=== PATIENT | male | born 1960 | race Caucasian/White ===

== ENCOUNTER 2017-09-03 13:09 | Outpatient (CLI) | payer OTHER ==
[2017-09-03 13:48] LABS: Hemoglobin 15.3 g/dL (14.0-18.0); Mean Corpuscular HGB CONC 34.5 g/dL (32.0-36.0); Mean Corpuscular Hemoglobin 33.8 pg (27.0-31.0); Mean Corpuscular Volume 97.9 fL (78.0-98.0); Mean Platelet Volume 7.9 fL (7.4-10.4); Platelet Count 190 thou/uL (130-400); RBC Distribution Width 13.6 % (11.5-14.5); Red Blood Cell (RBC) Count 4.53 mill/uL (4.70-6.10); White Blood Cell (WBC) Count 6.8 thou/uL (4.8-10.8)
[2017-09-03 14:02] LABS: PTT 27.5 SEC (22.9-36.1)
[2017-09-03 14:03] LABS: INR-International Normal Ratio 1.1
[2017-09-03 14:13] LABS: ALT (SGPT) 17 U/L (8-55); AST (SGOT) 17 U/L (5-34); Albumin 4.3 g/dL (3.5-5.0); Alkaline Phosphatase 60 U/L (40-150); Anion Gap 12 mmol/L (10-20); BUN (Urea Nitrogen) 13 mg/dL (8.4-25.7); Bilirubin, Total 1.1 mg/dL (0.2-1.2); Calc. Creatinine Clearance 0 mL/min (70-130); Calcium 9.4 mg/dL (7.8-10.44); Carbon Dioxide 28 mmol/L (22-29); Chloride 104 mmol/L (98-107); Estimated GFR-MDRD 89; Globulin 2.3 g/dL (2.4-3.5); Glucose 179 mg/dL (70-105); Potassium 3.8 mmol/L (3.5-5.1); Protein, Total 6.6 g/dL (6.0-8.3); Sodium 140 mmol/L (136-145)
--- NOTE | 2017-09-03 17:22 | EKG ---
Test Reason : Blood Pressure : / mmHG Vent. Rate : 089 BPM Atrial Rate : 077 BPM P-R Int : 000 ms QRS Dur : 104 ms QT Int : 352 ms P-R-T Axes : 000 018 105 degrees QTc Int : 428 ms Atrial fibrillation Incomplete right bundle branch block Cannot rule out Anterior infarct , age undetermined Nonspecific ST-T changes Abnormal ECG No previous ECGs available Confirmed by DR. Chanda DOCKERY ([id number]) on 09/03/2017 5:22:21 PM Referred By: ELROY Confirmed By:DR. Chanda DOCKERY
== END 2017-09-03 13:10 | disposition home or self-care (01) ==
LOC: LABBT 13:09
PROVIDERS: ATTEND Internal Medicine Cardiovascular Disease
DX: Z01.818 Encounter for other preprocedural examination (principal); R94.39 Abnormal result of other cardiovascular function study
CPT/HCPCS: 80053; 85027; 85610; 85730; 93005; 93010

== ENCOUNTER → 2017-09-07 | Day surgery (SDC) | payer OTHER ==
[2017-09-03 13:37] VITALS: BMI 32.3
[~2017-09-07] MED LIST: Diazepam 5 MG TAB ONE; Fentanyl 100 MCG/2 ML VIAL ONE; Heparin 10,000 UNITS/1 ML VIAL ONE; Iopamidol 370 76% 100 ML VIAL ONE; Lidocaine 1% (PF) 30 ML VIAL ONE; Midazolam HCl 2 mg/2 ml Vial ONE; Nitroglycerin 100MG/250ML BOT 250 ML ONE; Verapamil 5 MG/2 ML VIAL ONE
== END ==
LOC: CCL 06:03
PROVIDERS: ATTEND Internal Medicine Cardiovascular Disease
DX: R94.39 Abnormal result of other cardiovascular function study (principal); I48.91 Unspecified atrial fibrillation; Z79.01 Long term (current) use of anticoagulants; Z79.899 Other long term (current) drug therapy
CPT/HCPCS: 93454; 99152; C1769; J1644; J2001; J2250; J3010

== ENCOUNTER 2017-12-01 09:56 | Day surgery (SDC) | payer OTHER ==
[2017-11-30 14:22] VITALS: BMI 32.3
[2017-12-01] MEDS ORDERED: PROPOFOL 200 MG/20 ML VIAL ONE (11:29)
[2017-12-01] MEDS ORDERED: PROPOFOL 20 ML ONE (12:21)
--- NOTE | 2017-12-01 22:43 | OP ---
DATE OF PROCEDURE: 12/01/17 PREPROCEDURE DIAGNOSIS: Atrial fibrillation. POSTPROCEDURE DIAGNOSIS: Sinus rhythm. PROCEDURE: Synchronized cardioversion x1 at 150 joules. The patient was consented for the procedure prior to the procedure. Propofol used for conscious sedation. Patient underwent a cardioversion x1 in a synchronized fashion at 150 joules. IMPRESSION: Successful synchronized cardioversion.
== END 2017-12-01 13:15 | disposition home or self-care (01) ==
LOC: CCL 09:56
PROVIDERS: ATTEND Internal Medicine Cardiovascular Disease
PROC: 5A2204Z Restoration of Cardiac Rhythm, Single (ICD-10-PCS; principal; 2017-12-01)
DX: I48.1 Persistent atrial fibrillation (principal); I42.8 Other cardiomyopathies; I50.22 Chronic systolic (congestive) heart failure; Z87.891 Personal history of nicotine dependence; Z79.01 Long term (current) use of anticoagulants; Z79.899 Other long term (current) drug therapy
CPT/HCPCS: 92960; J2704

== ENCOUNTER 2018-04-28 05:59 | Observation (INO) | payer OTHER ==
[2018-04-27 12:51] VITALS: BMI 33.1
[2018-04-28] MEDS ORDERED: Fentanyl 100 MCG/2 ML VIAL ONE (07:04)
[2018-04-28] MEDS ORDERED: Phenylephrine HCL 10 MG/ML VIAL ONE ×2 (07:05→08:14)
[2018-04-28 07:07] LABS: #Lymphocytes 2.1 thou/uL (1.20-3.40); #Monocytes 0.5 thou/uL (0.11-0.59); #Neutrophils 3.6 thou/uL (1.40-6.50); %Basophils 0.7 % (0.0-1.0); %Eosinophils 0.7 % (0.0-10.0); %Monocytes 7.3 % (0.0-10.0); %Neutrophils 57.3 % (42.0-75.0); Hemoglobin 14.6 g/dL (14.0-18.0); Mean Corpuscular HGB CONC 33.3 g/dL (32.0-36.0); Mean Corpuscular Hemoglobin 32.5 pg (27.0-31.0); Mean Corpuscular Volume 97.7 fL (78.0-98.0); Mean Platelet Volume 8.5 fL (7.4-10.4); Platelet Count 226 thou/uL (130-400); RBC Distribution Width 11.8 % (11.5-14.5); Red Blood Cell (RBC) Count 4.51 mill/uL (4.70-6.10); White Blood Cell (WBC) Count 6.3 thou/uL (4.8-10.8)
[2018-04-28 07:09] LABS: INR-International Normal Ratio 1.1; Prothrombin Time 13.9 SEC (12.0-14.7)
[2018-04-28 07:17] LABS: Anion Gap 13 mmol/L (10-20); BUN (Urea Nitrogen) 17 mg/dL (8.4-25.7); Calc. Creatinine Clearance 110 mL/min (70-130); Calcium 9.5 mg/dL (7.8-10.44); Carbon Dioxide 24 mmol/L (22-29); Chloride 107 mmol/L (98-107); Estimated GFR-MDRD 81; Glucose 97 mg/dL (70-105); Potassium 4.2 mmol/L (3.5-5.1); Sodium 140 mmol/L (136-145)
[2018-04-28] MEDS ORDERED: Heparin 25,000 units/D5W 500 ML ONE (09:15)
[2018-04-28] MEDS ORDERED: Heparin 10,000 UNITS/1 ML VIAL ONE ×2 (09:40→11:51)
[2018-04-28] MEDS ORDERED: Isoproterenol 0.2 MG/1 ML AMP ONE (11:51)
[2018-04-28] MEDS ORDERED: Protamine Sulfate 50 MG/5 ML VIAL ONE ×2 (12:15→12:27)
[2018-04-28] MEDS ORDERED: Promethazine HCl 25 MG/ML VIAL ONE (13:14)
[2018-04-28] MEDS ORDERED: Acetaminophen/Codeine 30-300mg Tablet PO PRN ×2 (14:19)
[2018-04-28 14:34] LABS: #Eosinphils 0.1 thou/uL (0.0-0.7); #Lymphocytes 0.8 thou/uL (1.20-3.40); #Monocytes 0.2 thou/uL (0.11-0.59); #Neutrophils 11.2 thou/uL (1.40-6.50); %Basophils 0.1 % (0.0-1.0); %Eosinophils 0.4 % (0.0-10.0); %Lymphocytes 6.1 % (21.0-51.0); %Monocytes 1.5 % (0.0-10.0); %Neutrophils 91.8 % (42.0-75.0); Hemoglobin 13.7 g/dL (14.0-18.0); Mean Corpuscular HGB CONC 33.3 g/dL (32.0-36.0); Mean Corpuscular Hemoglobin 33.1 pg (27.0-31.0); Mean Corpuscular Volume 99.5 fL (78.0-98.0); Mean Platelet Volume 8.6 fL (7.4-10.4); Platelet Count 205 thou/uL (130-400); RBC Distribution Width 11.8 % (11.5-14.5); Red Blood Cell (RBC) Count 4.13 mill/uL (4.70-6.10); White Blood Cell (WBC) Count 12.2 thou/uL (4.8-10.8)
[2018-04-28] MEDS ORDERED: Lidocaine 1% PF 5 ML VIAL ONE (14:53)
[2018-04-28] MEDS ORDERED: Rocuronium Bromide 10 MG/ML (10ML VIAL) ONE (14:53)
[2018-04-28] MEDS ORDERED: PROPOFOL 200 MG/20 ML VIAL ONE (14:53)
[2018-04-28] MEDS ORDERED: Ondansetron PF 4 MG/2 ML Vial ONE (14:53)
[2018-04-28] MEDS ORDERED: Glycopyrrolate 0.2 MG/ML 5 ML SYRINGE ONE (14:53)
[2018-04-28] MEDS ORDERED: Dexamethasone 20 MG/5 ML VIAL ONE (14:53)
--- NOTE | 2018-04-28 19:10 | OP ---
DATE OF PROCEDURE: 04/28/2018 PROCEDURE PERFORMED: Electrophysiology study and radiofrequency ablation. REASON FOR PROCEDURE: Mr. Toribio is a 57-year-old gentleman with prior history of newly found CHF in the setting of newly found atrial fibrillation with rapid ventricular rate, LVEF initially 40% to 45%, improving with amiodarone, which was later discontinued. Minimal ischemia noted in the anterior wall in the past. DESCRIPTION OF PROCEDURE: The patient received propofol and general anesthesia by Anesthesia specialist. The left and right femoral veins were prepped, draped, and anesthetized using subcutaneous lidocaine. With ultrasound guidance, both femoral veins were cannulated. For the left, a 9-Hungarian sheet was used to advanced the ICE probe to the esophagus. Also from the left side, a Preface sheath was used to advance the DuoDeca catheter into the CS and the right atrial position. The ICE sheath was used to monitor the transseptal puncture and development of any effusion throughout the procedure. The right atrial map was obtained as well via a left-sided short sheath using the ThermoCool SFST catheter. This catheter was removed and two 8-Hungarian sheaths in the right femoral vein were exchanged to SL1 and a Preface sheath, which was used to perform a double transseptal puncture with ICE catheter monitoring and fluoroscopic monitoring. The heparin was introduced at this point, and ACT was monitored throughout the procedure to maintain levels over 350. A 20-pole Lasso catheter was advanced to the left atrium and left atrial 3D map was obtained, and with the other sheath, a ThermoCool SFST catheter was advanced to the left atrium and pulmonary venous isolation procedure was performed, isolating all 4 pulmonary veins as well as the posterior wall was isolated. The patient remained in atrial fibrillation following that. Throughout the case, an esophageal temperature probe was used to monitor the esophageal temperatures and avoid excessive heating. The patient remained in atrial fibrillation at this point. Ablation of left atrial base was performed. The patient remains atrial fibrillation as well. Following that, the ablation catheter was introduced into the right side, ablation of the right lateral wall as well as coronary sinus was performed. The atrial fibrillation remained. At this point, cardioversion was performed with 200 joule, restoring sinus rhythm. The Isuprel was administered at 20 mcg and the reconnections were checked in the each vein and each reconnection was re-ablated. Also baseline EP study was performed, demonstrating baseline rhythm of atrial fibrillation, with RR 755, NE of 190, QRS 93, QT 307, HV interval was measured to be 54 milliseconds. Retrograde Wenckebach cycle length from LV pacing was at 340 milliseconds, concentric retrograde VA conduction was seen. The burst atrial pacing did not reinduce arrhythmias with Isuprel. All reconnections were re-ablated. The patient tolerated the procedure well. No complications noted. ICE monitoring reveals trivial effusion at the end of the case. Total approximate Ablation time 40 minutes @ 40watts. CONCLUSION: 1. Successful pulmonary venous isolation procedure as well as isolation of posterior wall, ablation of coronary sinus and left atrial basal wall as well as right atrial basal wall was performed. 2. No evidence of accessory pathway by LV pacing. 3. Normal Sinus and AV tong function. Job ID: [id number] [facility]
[2018-04-28] MEDS ORDERED: Losartan 25 MG TAB PO SCH (21:00)
[2018-04-28] MEDS ORDERED: Digoxin 0.25 MG TAB PO SCH (21:00)
[2018-04-28] MEDS: Apixaban 5 MG TAB PO SCH (21:03)
[2018-04-29 05:55] LABS: #Lymphocytes 1.3 thou/uL (1.20-3.40); #Monocytes 0.8 thou/uL (0.11-0.59); #Neutrophils 8.9 thou/uL (1.40-6.50); %Eosinophils 0.2 % (0.0-10.0); %Lymphocytes 11.8 % (21.0-51.0); Hemoglobin 12.9 g/dL (14.0-18.0); Mean Corpuscular HGB CONC 32.7 g/dL (32.0-36.0); Mean Corpuscular Hemoglobin 33.5 pg (27.0-31.0); Mean Platelet Volume 8.3 fL (7.4-10.4); Platelet Count 195 thou/uL (130-400); RBC Distribution Width 11.9 % (11.5-14.5); Red Blood Cell (RBC) Count 3.85 mill/uL (4.70-6.10); White Blood Cell (WBC) Count 10.9 thou/uL (4.8-10.8)
[2018-04-29] MEDS ORDERED: Carvedilol 3.125 MG TAB PO SCH (09:00)
[2018-04-29] MEDS: Apixaban 5 MG TAB PO SCH (09:36)
[2018-04-29 12:08] VITALS: BP 96/54; TEMP 99.6
--- NOTE | 2018-04-29 15:31 | DIS ---
DATE OF ADMISSION: 04/28/2018 DATE OF DISCHARGE: 04/29/2018 DIAGNOSIS: Persistent atrial fibrillation. PROCEDURES PERFORMED: Include electrophysiology study, pulmonary venous isolation, and radiofrequency ablation. HISTORY OF PRESENT ILLNESS: Mr. Toribio is a very pleasant 57-year-old gentleman noted to have likely cardiomyopathy with a reduced LV ejection fraction, which improved with rate control. He had tried cardioversion while on amiodarone for his atrial arrhythmias, and unfortunately, did not hold sinus rhythm. His amiodarone was discontinued. His heart failure symptoms resolved with rate control and he was kept on consistent oral anticoagulation. He is largely asymptomatic with his atrial fibrillation. The decision was made to move forward with ablation for long-term management of his arrhythmias. PROCEDURE: 1. Successful pulmonary venous isolation procedure as well as isolation of the posterior wall ablation of the coronary sinus and left atrial basal wall as well as the right atrial basal wall performed. 2. No evidence of accessory pathway by LV pacing. 3. Normal sinus and AV tong function. OBJECTIVE: VITAL SIGNS: Temperature 98.7, pulse 81, blood pressure 106/67, respirations 16, oxygen 98% on room air. GENERAL: The patient is in general, alert, and oriented. Speech is clear. Affect is appropriate. He is ambulating normally throughout the vasquez, tolerating p.o. intake and voiding normally. He does endorse positional chest discomfort. NECK: Supple with mild jugular venous distention. LUNGS: Clear to auscultation bilaterally. HEART: Rate is irregularly irregular with a crisp S1 and S2. There is no evidence of tamponade. ABDOMEN: Soft and nontender without palpable masses. Hepatojugular reflux is negative. There are positive bowel sounds throughout. EXTREMITIES: Warm and dry to touch without clubbing, cyanosis, or edema. NEUROLOGIC: Exam is grossly intact and nonfocal with cranial nerves 2 through 12, and gait is stable without assistive device. DISCHARGE INSTRUCTIONS: A detailed discharge packet post-ablation was provided for the patient. Not to lift more than 5 to 10 pounds for the following week. No driving for 2 days. No soaking baths for 1 week. He will contact [facility] with any concerns or questions post ablation. We will continue uninterrupted oral anticoagulation therapy. His blood pressure is on the low end of normal, so I will have him hold his home medication of losartan when his systolic blood pressure is less than 110 mmHg. DISCHARGE MEDICATIONS: 1. Resume home medications. 2. Losartan 25 mg q.p.m., hold if systolic blood pressure less than 110 mmHg. 3. Digoxin 250 mcg p.o. p.r.n., heart rate greater than 110 beats per minute. 4. Carvedilol 3.125 mg p.o. b.i.d. 5. Apixaban 5 mg p.o. b.i.d. New prescriptions provided: 1. Sucralfate 1 g p.o. q.i.d. x2 weeks. 2. Pantoprazole 40 mg p.o. daily x30 days. 3. Furosemide 40 mg p.o. p.r.n. shortness of breath and swelling of the extremities. 4. Potassium chloride 20 mEq p.o. p.r.n. only if taking Lasix. 5. Colchicine 0.3 mg p.o. b.i.d. to be taken for chest discomfort and inflammation post ablation. CONDITION AT DISCHARGE: Stable. Job ID: [id number]
== END 2018-04-29 14:57 | disposition home or self-care (01) ==
LOC: CCL 05:59 → 2SW 14:02
PROVIDERS: ADMIT Internal Medicine Cardiovascular Disease; ATTEND Internal Medicine Cardiovascular Disease
PROC: 02583ZZ Destruction of Conduction Mechanism, Percutaneous Approach (ICD-10-PCS; principal; 2018-04-29)
PROC: 02K83ZZ Map Conduction Mechanism, Percutaneous Approach (ICD-10-PCS; 2018-04-29)
DX: I48.1 Persistent atrial fibrillation (principal); Z79.01 Long term (current) use of anticoagulants; Z79.899 Other long term (current) drug therapy
CPT/HCPCS: 36415; 76942; 80048; 85025; 85347; 85610; 85730; 92960; 93005; 93010; 93613; 93622; 93623; 93655; 93656; 93657; 93662; C1730; C1731; C1732; C1759; C1769; G0378; J1100; J1644; J2001; J2370; J2405; J2550; J2704; J2720; J3010